=== PATIENT | female | born 1940 | race Caucasian/White ===

== ENCOUNTER → 2016-06-19 | Outpatient (CLI) | payer MEDICARE, MEDICAID ==
--- NOTE | 2016-06-19 15:14 | CT ---
EXAM DESCRIPTION: Chest w/o Contrast (accession [id number]), Abdoment/Pelvis w/o Contrast (accession [id number]) CLINICAL HISTORY: R91.8, nonspecific abnormal finding of lung field, R10.9, unspecified abdominal pain COMPARISON: CT abdomen and pelvis March 29, 2013 TECHNIQUE: CT of the chest, abdomen and Pelvis was performed without IV contrast. This exam was performed according to our departmental dose-optimization program, which includes automated exposure control, adjustment of the mA and/or kV according to patient size and/or use of iterative reconstruction technique. FINDINGS: CT chest: Evaluation of vascular structures is limited by lack of IV contrast, but there is no thoracic aortic aneurysm. The main pulmonary artery is not dilated. No mediastinal or hilar adenopathy. No pleural or pericardial effusion. There is platelike atelectasis or scarring in the right lung base. No airspace consolidation is identified. No lung nodule is seen. The central airways are clear. No fracture or suspicious bone lesion. No pneumothorax. CT abdomen pelvis: There are mild inflammatory changes adjacent to the pancreatic head consistent with pancreatitis. Slightly limited evaluation of the pancreas due to lack of IV contrast, but no pancreatic mass or pancreatic duct dilation is seen. There is no free or contained peripancreatic fluid in the gallbladder is surgically absent. No calcified gallstone is seen in the common bile duct. The liver, spleen, adrenals and kidneys are unremarkable for noncontrast technique. No dilated small bowel loops. The uterus and ovaries are surgically absent. Colonic diverticulosis is noted without diverticulitis. No bladder wall thickening. No concerning bone lesion. IMPRESSION: Pancreatitis without apparent pancreatic mass, choledocholithiasis, peripancreatic fluid collection or other complication. Electronically signed by: Evan Eddy MD 06/19/2016 3:14 PM CDT
== END | disposition home or self-care (01) ==
LOC: CT 13:33
PROVIDERS: ATTEND General Practice
DX: R10.9 Unspecified abdominal pain (principal); R91.8 Other nonspecific abnormal finding of lung field

== ENCOUNTER → 2017-09-03 | Outpatient (CLI) | payer MEDICARE, MEDICAID ==
--- NOTE | 2017-09-03 16:13 | CT ---
EXAM DESCRIPTION: Abdomen/Pelvis w/o Contrast: Computed Tomography. CLINICAL HISTORY: RIGHT RENAL MASS. Patient allergic to IV contrast. COMPARISON: CT scan of the abdomen without contrast 06/19/2016. TECHNIQUE: Spiral-axial scans 5.0 mm intervals through the abdomen and pelvis without oral or IV contrast. Coronal and sagittal 2.0 mm reconstructions. Total Exam DLP: 1100.78 mGy-cm. This exam was performed according to our departmental CT dose-optimization program which includes automated exposure control, adjustment of the mA and/or kV according to patient size and/or use of iterative reconstruction technique; to reduce radiation dose to as low as reasonably achievable (ALARA). FINDINGS: Lung bases and pleura: Pleural thickening. No effusion or abnormalities in the lung bases. Liver, stomach, spleen, and adrenal glands: Calcification of the distal splenic artery. Normal expansion of the stomach. Solid organs are negative. Pancreas, Gallbladder, and Ducts: Surgical clips in the gallbladder fossa. No fluid. Fatty infiltration of the pancreas and atrophy. Is there history of diabetes. Normal size nodes abutting the pancreas. Inflammatory changes around the head seen on the prior study are no longer present. No duct enlargement. Kidneys and Ureters: Slight elevation of the anterior capsule of the right kidney, approximately 1.5 cm length, at the level of the hilum is stable since the prior study. No focal mass, but evaluation is limited due to lack of IV contrast. Bilateral perirenal fascial thickening is stable since the prior study. Small cyst or lipoma in the superior pole of the left kidney is stable. Right kidney is larger than the left kidney and this is unchanged. Stable appearance of the left extrarenal pelvis and bilateral ureters. Mesentery: No fatty stranding fascial thickening free air or free fluid. Aorta: Moderate atherosclerotic calcifications in the aorta with minimal narrowing of the distal lumen is stable. Small Bowel: Unremarkable. Terminal Ileum/Cecum: Normal caliber appendix is not seen. Surgical material inferior cecum. Normal density of the surrounding fat. Colon: Diffuse fecal matter diverticula in the sigmoid colon with no complications. Pelvic Organs: Vaginal cuff is negative. No masses or fluid. Spine and Bony Pelvis: Minimal spondylosis L5-S1. Bilateral foraminal narrowing L4-5 and L5-S1. Spondylosis inferior thoracic segments. Abdominal Wall/Back Soft Tissues: Bilateral adipose tissue calcifications in the buttocks. Stable since the prior study. IMPRESSION: 1. No renal mass is visualized. Evaluation is limited due to lack of IV contrast. Stable appearance since the prior study with no hydronephrosis, hydroureter, or stones in the kidneys or ureters. If patient has no history of allergic reaction to gadolinium IV contrast, and MRI scan of the kidneys without and with IV gadolinium may be helpful. 2. Pancreatitis seen on the prior study has resolved. 3. Diverticulosis in the sigmoid colon is stable with no complications. Electronically signed by: Arnaldo Lau MD 09/03/2017 4:12 PM CDT
== END ==
LOC: CT 10:00
PROVIDERS: ATTEND General Practice
DX: N28.89 Other specified disorders of kidney and ureter (principal); K57.30 Diverticulosis of large intestine without perforation or abscess without bleeding